=== PATIENT | male | born 1975 | race Caucasian/White ===

== ENCOUNTER 2024-03-10 10:25 | Emergency (ER) | payer BC, SELFPAY ==
[2024-03-10 10:52] VITALS: BP 141/91
--- NOTE | 2024-03-10 12:03 | ED.GENMED ---
History of Present Illness
<Swathi Linares PA-C - Last Filed: 03/10/24 13:56>
General
Chief Complaint: Eye Problems
Source: patient
Time Seen by Provider: 03/10/24 11:51
History of Present Illness
History of Present Illness:
48yoM with a history of prior cataract surgery with lens placement on the R several years ago presenting for evaluation of right eye pain. Symptoms began last night. He reports eye pain, redness, foreign body sensation, photophobia, and tearing. He
states it feels like his lens is displaced. He denies any injury to the eye. He does not wear glasses or contacts. He uses loteprednol and brimonidine eye drops daily.
Phy Exam
<Swathi Linares PA-C - Last Filed: 03/10/24 13:56>
Physical Exam
Physical Exam:
Right eye: Severe diffuse corneal injection noted. R pupil is larger than L pupil which patient states is normal for him. PERRL. EOMs intact. Visual murdock normal. Pressure is 9 and 10mmHg in R eye on repeat measurements. Visual acuity 20/160 on R,
20/20 on L. Pain relieved after tetracaine administration. Two areas of fluorescein uptake noted at 7:00 position on iris and 7:00 position on sclera with surrounding cloudiness and edema concerning for developing corneal ulcer. No FB seen. Negative
Bria sign.
Course
<Swathi Linares PA-C - Last Filed: 03/10/24 13:56>
Orders/Labs/Results
Orders:
Orders
03/10/24 11:55
Tetracaine HCl [Tetracaine 0.5% Ophthalmic Solution] 1 drop .ROUTE .STK-MED ONE
03/10/24 11:56
Fluorescein Sodium [Ful-Iris] 1 mg .ROUTE .STK-MED ONE
03/10/24 11:57
Visual Acuity- Treatment ONCE
03/10/24 14:00
Tetracaine HCl [Tetracaine 0.5% Ophthalmic Solution] 1 drop .ROUTE .STK-MED ONE
Vital Signs
Initial and Last Documented VS:
Initial Vital Signs
Temp Pulse Resp BP Pulse Ox
98.3 F 61 18 141/91 99
03/10/24 10:52 03/10/24 10:52 03/10/24 10:52 03/10/24 10:52 03/10/24 10:52
Last Documented Vital Signs
Temp Pulse Resp BP Pulse Ox
98.3 F 61 18 141/91 99
03/10/24 10:52 03/10/24 10:52 03/10/24 10:52 03/10/24 10:52 03/10/24 10:52
<Meng Sommers MD - Last Filed: 03/10/24 14:12>
Orders/Labs/Results
Orders:
Orders
03/10/24 11:55
Tetracaine HCl [Tetracaine 0.5% Ophthalmic Solution] 1 drop .ROUTE .STK-MED ONE
03/10/24 11:56
Fluorescein Sodium [Ful-Iris] 1 mg .ROUTE .STK-MED ONE
03/10/24 11:57
Visual Acuity- Treatment ONCE
03/10/24 14:00
Tetracaine HCl [Tetracaine 0.5% Ophthalmic Solution] 1 drop .ROUTE .STK-MED ONE
Vital Signs
Initial and Last Documented VS:
Initial Vital Signs
Temp Pulse Resp BP Pulse Ox
98.3 F 61 18 141/91 99
03/10/24 10:52 03/10/24 10:52 03/10/24 10:52 03/10/24 10:52 03/10/24 10:52
Last Documented Vital Signs
Temp Pulse Resp BP Pulse Ox
98.3 F 61 18 141/91 99
03/10/24 10:52 03/10/24 10:52 03/10/24 10:52 03/10/24 10:52 03/10/24 10:52
<Swathi Linares PA-C - Last Filed: 03/10/24 13:56>
MDM/Problems Addressed
Differential Diagnosis Includes:
48yoM here with atraumatic R eye pain x 1 day. Associated with photophobia, redness, tearing, and FB sensation. Hx of cataract surgery several years ago. He is well appearing with stable vital signs. Severe conjunctival injection noted on exam. Eye
pressures normal. Two areas of uptake seen on fluorescein stain with surrounding cloudiness concerning for developing corneal ulcer. No evidence of FB or globe rupture present.
Patient also seen by Dr. Sommers who performed slit lamp exam. Dr. Sommers discussed case with [facility]. Plan to discharge patient and patient to drive himself directly to [facility] ED for evaluation. Patient in agreement with plan and was discharged
in the care of his and son.
<Swathi Linares PA-C - Last Filed: 03/10/24 13:56>
*Critical Care Note
Total Time (30-74mins, 75-104mins- exclusive of procedures): Not Applicable
ED Attending Note
<Swathi Linares PA-C - Last Filed: 03/10/24 13:56>
-
Portions of this chart may have been created with voice recognition software.� Occasional wrong word or��sound alike� substitutions may have occurred due to the inherent limitations of voice recognition software.
<Meng Sommers MD - Last Filed: 03/10/24 14:12>
ED Attending Note
Patient seen and examined by attending physician: Yes
I performed the substantive portion of visit, reviewed & personally made and approve the management plan that is documented in note by myself or MARSHA.: Yes
ED Attending Note:
Nontraumatic pain visual changes to the right eye overnight. History of lens implant after cataract surgery at 18 years of age. Notes pain and photophobia and some visual changes.
On exam diffuse conjunctival injection. Haziness to the cornea. Slightly dilated right pupil. Photophobic pain and consensual photophobia. Slit-lamp exam shows a early ulceration approximately 6-8 o'clock but more centrally. Fairly decent size.
There is surrounding corneal inflammation and edema.
[facility] will be contacted. Await visual acuity.
Visual acuity 2160 in the right eye. Discussed with [facility]. He will be sent down there for further evaluation
Discharge Plan
Departure
Patient Disposition: Home (Routine Discharge)
Date of Disposition: 03/10/24
Time of Disposition: 13:20
Patient with high blood pressure during this ER visit?: No
Discharge Problem:
Iritis
Referrals:
Tank Dugan MD [Family Provider] -
Activity Restrictions/Additional Instructions:
Go directly to [facility] ER to be evaluated by an quality review specialist.
Interventions
Interventions:
*Risk Screen - Suicide Last Done: 03/10/24 10:52
*General Assessment Last Done: 03/10/24 10:52
*Neglect/Abuse Screening Last Done: 03/10/24 10:52
Discharge Date and Time
Print Language: BENGALI
== END 2024-03-10 13:25 | disposition home or self-care (01) ==
LOC: EMR 10:25
PROVIDERS: EMERGENCY PHYSICIAN Emergency Medicine; FAMILY PHYSICIAN Family Medicine
DX: H20.9 Unspecified iridocyclitis (principal)
CPT/HCPCS: 99283